=== PATIENT | female | born 1995 | race Caucasian/White ===

== ENCOUNTER → 2017-02-19 | Outpatient (CLI) | payer OTHER | LOC: HEART CORB 15:26 | DX: R00.2 Palpitations (principal); R00.0 Tachycardia, unspecified; R03.0 Elevated blood-pressure reading, without diagnosis of hypertension ==

== ENCOUNTER → 2017-02-26 | Outpatient (CLI) | payer OTHER | LOC: HEART CORB 14:07 | DX: R03.0 Elevated blood-pressure reading, without diagnosis of hypertension (principal); R00.0 Tachycardia, unspecified | CPT/HCPCS: 93306 ==

== ENCOUNTER 2020-12-05 10:59 | Emergency (ER) | payer OTHER ==
[2020-12-05 11:57] LABS: HEMOGLOBIN 13.6 gm/dl (12.3-15.3); RED BLOOD COUNT 4.71 M/UL (4.00-5.10); WHITE BLOOD COUNT 6.9 K/UL (4.5-11.0)
[2020-12-05 12:24] LABS: BUN/CREATININE RATIO 11 (0-10)
[2020-12-05] MEDS ORDERED: PHENERGAN 25 MG25 M1 PO (14:51)
== END 2020-12-05 15:00 | disposition home or self-care (01) ==
LOC: ER1 10:59
PROVIDERS: Physician Assistant
DX: O21.9 Vomiting of pregnancy, unspecified (principal); O99.891 Other specified diseases and conditions complicating pregnancy; R19.7 Diarrhea, unspecified; R55 Syncope and collapse; O14.90 Unspecified pre-eclampsia, unspecified trimester; Z79.899 Other long term (current) drug therapy; Z79.82 Long term (current) use of aspirin; Z3A.01 Less than 8 weeks gestation of pregnancy
CPT/HCPCS: 80053; 81001; 84702; 85025; 93005; 96374; 99284; J2550; J7030